=== PATIENT | female | born 1970 | race Caucasian/White ===

== ENCOUNTER 2016-08-14 21:09 | Emergency (ER) | payer OTHER ==
[2016-08-14 21:28] VITALS: BP 137/85; PULSE 78; RESP 18; TEMP 99.1; O2SAT 99
[2016-08-14] MEDS ORDERED: Sodium Chloride 0.9% 1,000 ML IV STA (21:58)
--- NOTE | 2016-08-14 21:59 | ED PDOC ---
HPI: Abdomen Time Seen by Provider: 08/14/16 21:32 Chief Complaint (Nursing): GI Problem Chief Complaint (Provider): Abdominal Pain History Per: Patient Additional Complaint(s): Patient is a 46 yo female, PMH of anxiety, asthma, depression, presents to ED with complaints of diarrhea for 5-6 days, patient feels week. Denies n/v. Patient feels all fluid and food triggers loose stool. No nausea or vomiting. no fever or chills. Past Medical History Reviewed: Nursing Documentation, Vital Signs Vital Signs: Last Vital Signs Temp 99.1 F 08/14/16 21:25 Pulse 78 08/14/16 21:25 Resp 18 08/14/16 21:25 BP 137/85 08/14/16 21:25 Pulse Ox 99 08/14/16 21:59 - Medical History PMH: Anxiety, Asthma, Depression - Family History Family History: States: Unknown Family Hx - Immunization History Hx Tetanus Toxoid Vaccination: Yes Hx Influenza Vaccination: No Hx Pneumococcal Vaccination: No - Home Medications Home Medications: Ambulatory Orders Medication Instructions Recorded Ibuprofen 600 mg PO Q8 #30 tablet 06/12/15 Leg Brace [Knee Brace] 1 each MC DAILY #1 each 06/12/15 oxyCODONE/Acetaminophen [Percocet 1 tab PO QID PRN #20 tab 06/12/15 5/325 mg Tab] Loratadine [Claritin] 10 mg PO DAILY #100 ml 07/12/15 Dicyclomine [Bentyl] 10 mg PO QID PRN #10 cap 08/15/16 - Allergies Allergies/Adverse Reactions: Allergies Allergy/AdvReac Type Severity Reaction Status Date / Time No Known Allergies Allergy Verified 06/12/15 17:01 Review of Systems ROS Statement: Except As Marked, All Systems Reviewed And Found Negative Gastrointestinal: Positive for: Nausea, Abdominal Pain, Diarrhea Physical Exam - Reviewed Nursing Documentation Reviewed: Yes Vital Signs Reviewed: Yes - Physical Exam Appears: Positive for: Well, Non-toxic, No Acute Distress Head Exam: Positive for: ATRAUMATIC, NORMAL INSPECTION, NORMOCEPHALIC Skin: Positive for: Normal Color, Warm, DRY Eye Exam: Positive for: EOMI, Normal appearance, PERRL ENT: Positive for: Normal ENT Inspection Neck: Positive for: Normal, Painless ROM Cardiovascular/Chest: Positive for: Regular Rate, Rhythm Respiratory: Positive for: CNT, Normal Breath Sounds Gastrointestinal/Abdominal: Positive for: Normal Exam, Bowel Sounds, Soft Back: Positive for: Normal Inspection Extremity: Positive for: Normal ROM Neurologic/Psych: Positive for: Alert, Oriented - Laboratory Results Result Diagrams: 08/14/16 22:03 08/14/16 22:03 - ECG O2 Sat by Pulse Oximetry: 99 Medical Decision Making Medical Decision Making: IV access established and treatment initiated with IVF and Bentyl EKG: NSR at 70 bpm, no axis deviation or acute ST changes, as read by MONIKA Labs resulted and reviewed with Pt who demonstrated full understanding Pt reports doing well on re-eval, no complaints Abdomen soft, non tender and non distended Disposition - Clinical Impression Clinical Impression: Diarrhea - Patient ED Disposition Is Patient to be Admitted: No - Disposition Disposition: Routine/Home Disposition Time: 22:35 Condition: STABLE Prescriptions: Dicyclomine [Bentyl] 10 mg PO QID PRN #10 cap PRN Reason: Pain, Mild (1-3) Instructions: Acute Diarrhea (ED)
[2016-08-14 22:14] LABS: BASO % 0.4 % (0.0-2.0); EOS # 0.3 K/uL (0.0-0.7); HEMOGLOBIN 12.8 g/dL (12.0-16.0); LYMPH # 2.4 K/uL (1.0-4.3); LYMPH % 23.6 % (20.0-40.0); MEAN CELL VOLUME 95.5 fl (81.0-99.0); MEAN CORPUSCULAR HEMOGLOBIN 31.9 pg (27.0-31.0); MEAN CORPUSCULAR HGB CONC 33.4 g/dL (33.0-37.0); MEAN PLATELET VOLUME 9.3 fl (7.2-11.7); MONO # 0.7 K/uL (0.0-0.8); MONO % 6.4 % (0.0-10.0); NEUT # 6.8 K/uL (1.8-7.0); NEUT % 66.6 % (50.0-75.0); RBC 4.03 Mil/uL (3.80-5.20); RED CELL DISTRIBUTION WIDTH 13.9 % (11.5-14.5); WHITE BLOOD COUNT 10.2 K/uL (4.8-10.8)
[2016-08-14 22:25] LABS: ALB/GLOB RATIO 1.1 (1.0-2.1); ALBUMIN 3.6 g/dL (3.5-5.0); ALT/SGPT 33 U/L (9-52); AMYLASE 83 U/L (30-110); AST/SGOT 24 U/L (14-36); BLOOD UREA NITROGEN 15 mg/dl (7-17); CALCIUM 8.2 mg/dL (8.4-10.2); GFR AFRICAN-AMERICAN > 60; GFR NON-AFRICAN AMERICAN > 60; LIPASE 59 U/L (23-300)
[2016-08-14 22:31] LABS: SQUAMOUS EPITHIAL 4 /hpf (0-5); URINE BACTERIA FEW (<OCC); URINE BILIRUBIN NEGATIVE (NEGATIVE); URINE BLOOD MODERATE (NEGATIVE); URINE CLARITY SLIGHTY-CLOUDY (Clear); URINE COLOR YELLOW (YELLOW); URINE GLUCOSE (UA) NEG (Normal); URINE LEUKOCYTE ESTERASE NEG Leu/uL (Negative); URINE NITRATE NEGATIVE (NEGATIVE); URINE PROTEIN 30 mg/dL (NEGATIVE); URINE UROBILINOGEN 0.2-1.0 mg/dL (0.2-1.0)
--- NOTE | 2016-08-15 09:43 | CARD ---
APPROVED REPORT EKG Measurement Heart [id number] <Conclusion> Normal sinus rhythm Minimal voltage criteria for LVH, may be normal variant Inferior infarct, age undetermined Abnormal ECG
== END 2016-08-15 00:25 | disposition home or self-care (01) ==
LOC: H.ER 21:09
DX: R19.7 Diarrhea, unspecified (principal)
CPT/HCPCS: 80053; 81003; 81025; 82150; 83690; 84484; 85025; 93005; 99283; J7040